=== PATIENT | male | born 1965 | race Two or more races ===

== ENCOUNTER 2022-09-06 11:21 | Day surgery (SDC) | payer OTHER ==
[2022-09-05 11:38] LABS: BASOPHILS % (AUTO) 0.7 % (0.0-2.0); EOSINOPHILS # (AUTO) 0.4 K/uL (0-0.4); HEMATOCRIT 39.2 % (36-52); HEMOGLOBIN 13.3 g/dL (12.0-18.0); LYMPHOCYTES # (AUTO) 1.9 K/uL (2.0-11.5); LYMPHOCYTES % (AUTO) 30.8 % (20.5-51.1); MEAN CORPUSCULAR HEMOGLOBIN 30 pg (27-31); MEAN CORPUSCULAR HGB CONC 34 g/dL (33-37); MEAN CORPUSCULAR VOLUME 88.9 fL (80-94); MONOCYTES # (AUTO) 0.5 K/uL (0.8-1.0); MONOCYTES % (AUTO) 8.7 % (1.7-9.3); NEUTROPHILS # (AUTO) 3.4 K/uL (1.8-7.7); NEUTROPHILS % (AUTO) 53.8 % (42.2-75.2); PLATELET COUNT (AUTO) 197 K/uL (140-450); RED BLOOD CELL COUNT(AUTO) 4.42 MIL/uL (4.20-6.10); RED CELL DISTRIBUTION WIDTH 14.4 % (11.6-13.7); WHITE BLOOD COUNT (AUTO) 6.3 K/uL (4.8-10.8)
[2022-09-05 11:42] LABS: ANION GAP 12.7 (8-16); CARBON DIOXIDE 25.6 mmol/L (21-32); CREATININE 1.2 mg/dL (0.6-1.3); POTASSIUM 4.3 mmol/L (3.5-5.1)
[~2022-09-06] VITALS: Ht 167.6 cm; Wt 98.4 kg
[2022-09-06 12:24] LABS: PROTHROMBIN TIME 11.2 secs (10.8-13.4)
[2022-09-06] MEDS ORDERED: ceFAZolin 1,000 MG VIAL ONE (12:29)
[2022-09-06] MEDS ORDERED: BUPIVACAINE-MPF 0.25% 30 ML VIAL INJ ONE (12:29)
[2022-09-06] MEDS ORDERED: MIDAZOLAM 2 MG/2 ML VIAL ONE ×2 (12:55→12:56)
[2022-09-06] MEDS ORDERED: ceFAZolin 2,000 MG VIAL ONE (12:55)
[2022-09-06] MEDS ORDERED: PROPOFOL 200 MG/20 ML VIAL IV ONE ×2 (14:11)
[2022-09-06] MEDS ORDERED: ACETAMINOPHEN 100 ML IV PRN (14:15)
== END 2022-09-06 15:35 | disposition home or self-care (01) ==
LOC: MDS 11:21 → MMU 11:22 → MDS 15:35
PROVIDERS: ATTEND Internal Medicine Cardiovascular Disease
DX: Z45.010 Encounter for checking and testing of cardiac pacemaker pulse generator [battery] (principal); I49.5 Sick sinus syndrome; I10 Essential (primary) hypertension; E66.9 Obesity, unspecified; Z79.01 Long term (current) use of anticoagulants; Z79.899 Other long term (current) drug therapy; Z20.822 Contact with and (suspected) exposure to COVID-19
CPT/HCPCS: 33233; 36415; 80048; 85025; 85610; 85730; 87426; 93005; J0690; J2250; J2704; J3490; J7060; J7120